=== PATIENT | female | born 1980 | race Caucasian/White ===

== ENCOUNTER 2018-02-10 12:48 | Emergency (ER) | payer OTHER, SELFPAY ==
[2018-02-10 12:49] VITALS: BP 112/73; PULSE 124; RESP 18; TEMP 36.2; O2SAT 95; BMI 27.8
[2018-02-10] MEDS: 0.9% Normal Saline 1,000 ML 1000 ML IV (13:06)
[2018-02-10] MEDS: Dicyclomine 20 MG/2 ML Vial IM (13:12)
[2018-02-10] MEDS: Ondansetron 4 MG/2 ML Vial IV (13:12)
[2018-02-10 13:21] LABS: Absolute Lymphocyte Count 0.53 X10^3/ul (0.83-4.51); Absolute Neutrophil Count 16.1 X10^3/uL (2.0-7.7); Basophil# 0.02 X10^3/uL; Basophil% 0.1 % (0-1); Hematocrit 38.7 % (37-47); Hemoglobin 13.4 g/dl (12.0-15.0); Lymphocyte # 0.53 X10^3/ul (4.0); Mean Corp Hgb Conc 34.6 g/gl (32-36); Mean Corpuscular Hgb 28.8 pg (27.0-32.0); Mean Platelet Vol. 9.6 fl (6.2-12.0); Monocyte# 1.03 X10^3/uL; Monocyte% 5.8 % (0-10); Neutrophil # 16.12 X10^3/uL (2.7-7.7); Neutrophil % 90.8 % (47-70); Platelet Count 307 K/mm3 (150-450); RBC Distribution Width CV 12.7 % (11.6-14.6); RBC Distribution Width SD 38.5 fl (35.1-43.9); Red Blood Count 4.66 M/mm3 (4.2-5.4); White Blood Count 17.8 K/mm3 (4.4-11.0)
[2018-02-10 13:23] LABS: Differential Indicated SCAN CRITERIA MET; POSITIVE COUNT NO; POSITIVE DIFFERENTIAL YES; POSITIVE MORPHOLOGY NO
[2018-02-10 13:39] LABS: AST(SGOT) 13 U/L (15-37); Alanine Aminotransfer ALT/SGPT 18 U/L (13-56); Alkaline Phosphatase 72 U/L (45-117); Anion Gap 9 (5-15); BUN 9 mg/dL (7-18); BUN/Creat Ratio 12.2 RATIO (10-20); Calcium,Total 8.9 mg/dL (8.5-10.1); Chloride 107 mmol/L (98-107); Creatinine, Serum 0.74 mg/dL (0.55-1.02); EST Glomerular Filtration Rate 95 mL/min (>60); Est Glom Filt Rate - Afr Amer 115 mL/min (>60); Estimated Creatinine Clearance 83.92 ml/min; Globulin 4.1 g/dL (2.2-4.2); Glucose 109 mg/dL (74-106); Potassium 3.8 mmol/L (3.5-5.1); Protein, Total 8.1 g/dL (6.4-8.2); Sodium Level 138 mmol/L (136-145)
--- NOTE | 2018-02-10 13:53 | CT_ITS ---
STUDY: CT ABDOMEN AND PELVIS WITHOUT CONTRAST REASON FOR EXAM: Female, 37 years old. Right lower quadrant pain and vomiting. RADIATION DOSAGE (If Supplied By Facility): CTDIvol = ( 7.01 ) mGy, DLP = ( 345.08 ) mGycm TECHNIQUE: Transaxial images were obtained from the dome of the diaphragm to the symphysis pubis without oral contrast, and without intravenous contrast. Sagittal and coronal images were reconstructed. Individualized dose optimization techniques were used for this CT. COMPARISON: None. FINDINGS: Minimal degree of dependent bibasilar atelectasis. The visualized portions of the heart are within normal limits. Normal liver. Normal gallbladder and extrahepatic biliary system. Normal spleen. Normal pancreas. Normal bilateral adrenal glands. Normal right kidney. Normal left kidney. Normal visualized stomach. Normal small intestine. Normal colon. The appendix is visualized and appears normal. Normal abdominal aorta. Normal inferior vena cava. Normal retroperitoneum. Normal urinary bladder. Normal abdominal wall. Levoscoliosis. CT/Abdomen/Pelvis without Cont IMPRESSION: Normal unenhanced CT of the abdomen and pelvis. Electronically Signed: Augustus Hawkins MD at 15:20 EDT Tel [phone], Service support ,
[2018-02-10 13:55] LABS: Pregnancy, Serum, hCG Quali. NEGATIVE Negative (0-9 Nonpreg)
[2018-02-10 14:17] LABS: Mucous, Urine 0 SEEN /hpf (<or=2+)
[2018-02-10 14:18] LABS: Color, Urine Yellow (Yellow); Glucose, Dipstick Normal (Normal); Ketone-Dipstick 5 mg/dl (Negative); Leukocyte Esterase-Dipstick 500 /ul (Negative); Nitrite-Dipstick Negative (Negative); Occult Blood-Urine 150 /ul (Negative); Protein-Dipstick 30 mg/dl (Negative); Specific Gravity, Urine 1.025 (1.002-1.030); Urine Clarity Turbid (Clear); Urine Urobilinogen Normal (Normal)
[2018-02-10 14:23] LABS: Urine Bilirubin Dipstick 1 mg/dL (Negative)
[2018-02-10 14:41] LABS: Bacteria 4+ /hpf (None Seen); Red Blood Cells-Urine 0-5 SEEN /hpf (0-5); Squamous Epithelial Cells - UA 0-5 SEEN /hpf (5-10); White Blood Cells 5-10 SEEN /hpf (0-5)
[2018-02-10 15:14] VITALS: BP 118/70; PULSE 105; RESP 14; O2SAT 99
--- NOTE | 2018-02-10 15:25 | ED.VISSUMM ---
- ER Visit Summary Date of Service: 02/10/18 Chief Complaint: [Vomiting, diarrhea, abdominal pain] History of Present Illness: The patient is a 37 F [presents to the emergency department with complaint of nausea and vomiting and diarrhea that started initially today around 6 AM. Patient started having abdominal pain around 10 AM. Patient denies any fever at home. Patient denies urinary symptoms. Patient denies sick contacts. Patient denies recent antibiotic usage. Patient denies recent travel. Patient describes abdominal pain is right lower quadrant. And rates it an 8 out of 10.] Physical Examination: [HEENT-PERRLA, EOMI. Cranial nerves II through XII grossly intact. TMs clear. Mucous membranes moist. No adenopathy. Cardiovascular-regular rate and rhythm without murmur or ectopy Lungs-clear to auscultation, chest wall stable without crepitus or subcu emphysema Abdomen-hyperactive bowel sounds. Patient does have tenderness over right lower quadrant McBurney's. Patient has some guarding. There is no rebound, rigidity, or perineal signs. Negative Rovsing sign. Extremities-intact ?4, normal range of motion, normal pulses, atraumatic] Test Results: [CBC with differential obtained showed an elevated white blood cell count of 17.8, hemoglobin 13, hematocrit 39, placed 307. Chemistries unremarkable. Liver enzymes were normal. Urinalysis was positive for 500 leukocyte esterase, 5-10 WBCs, +4 bacteria. HCG was negative. CT flank showed a normal appendix and nothing acute.] Emergency Department Course and Treatment: [Patient was given a liter normal same fluid bolus as well as Zofran 4 mg IV. Patient was treated with Bentyl IM. Patient was started on Cipro 500 mg p.o. Patient had stool sent for enteric pathogens which are pending.] Treatment Plan: [Patient will be treated with Cipro, Bentyl, and Zofran] Disposition: [Discharged to home in stable condition.] Impression: [Viral gastroenteritis UTI] This note was generated with [employer] dictation software. It may contain incorrect words, spelling, and punctuation that were not noted in review of the chart prior to signing ED Disposition - Plan for ED Patient: Chief Complaint: Abd Pain Referrals: Lanre Crouch MD [Primary Care Provider] -
--- NOTE | 2018-02-10 15:28 | ED.DEP ---
ED Disposition - Plan for ED Patient: Chief Complaint: Abd Pain Instructions: ED UTI Cystitis Female, ED Gastroenteritis Viral Prescriptions: Ondansetron [Zofran Odt] 4 mg PO Q8H PRN PRN #10 tab PRN Reason: Nausea Dicyclomine HCl [Bentyl] 20 mg PO TIDAC #20 cap Ciprofloxacin [Cipro] 500 mg PO BID #14 tab Referrals: Lanre Crouch MD [Primary Care Provider] - 3-5 Days
[2018-02-10 16:01] VITALS: BP 123/75; PULSE 98; RESP 14; O2SAT 99
[2018-02-10] MEDS: Ciprofloxacin 250 MG Tablet 500 MG PO (16:15)
== END 2018-02-10 16:15 | disposition home or self-care (01) ==
PROVIDERS: Emergency Provider Emergency Medicine; Family Provider Family Medicine; PCP Family Medicine
DX: A08.4 Viral intestinal infection, unspecified (principal); N39.0 Urinary tract infection, site not specified; J45.909 Unspecified asthma, uncomplicated
CPT/HCPCS: 74176; 80053; 81001; 84703; 85025; 87086; 87088; 87506; 96361; 96372; 96374; 99283; J7030; A4216; J2405

== ENCOUNTER 2018-06-16 18:13 | Emergency (ER) | payer OTHER, SELFPAY ==
[2018-06-16 18:14] VITALS: BP 131/89; PULSE 79; RESP 17; TEMP 36.7; O2SAT 97; BMI 28.5
--- NOTE | 2018-06-16 18:37 | ED.DCSUM_ITS ---
- ER Visit Summary Date of Service: 06/16/18 Chief Complaint: Headache History of Present Illness: The patient is a 37 F with a headache over the past 3 days. The pain is in her occipital region, worse on the right. Worse with motion and associated with some nausea. No head injuries or blood thinners. T his came on gradually. She had headaches in the past but not like this. No other associated symptoms. No fevers or recent illness. No weakness or numbness. Physical Examination: Afebrile and vital signs unremarkable. Head and neck atraumatic. HEENT unremarkable. Cranial nerves grossly intact. Neck is nontender. Heart regular. Lungs clear. Skin appears normal. Good strength and sensation. Good cerebellar testing. Normal speech. Test Results: None indicated Emergency Department Course and Treatment: Patient has acute headache. There is no indication for imaging or diagnostic testing. No red flag features. Patient was treated with Benadryl, Compazine, and Toradol. Will reassess. Patient will follow-up as an outpatient. Stay rested and hydrated. Return for any new or worsening issues. Treatment Plan: As above Disposition: Discharged Impression: 1. Acute cephalgia This note was generated with [employer] dictation software. It may contain incorrect words, spelling, and punctuation that were not noted in review of the chart prior to signing ED Disposition - Plan for ED Patient: Chief Complaint: Headache Referrals: Lanre Crouch MD [Primary Care Provider] -
--- NOTE | 2018-06-16 18:37 | ED.DEP ---
ED Disposition - Plan for ED Patient: Chief Complaint: Headache Instructions: ED Cephalgia Unspecified Referrals: Lanre Crouch MD [Primary Care Provider] -
[2018-06-16] MEDS: DiphenhydrAMINE 50 MG/ML Syringe 25 MG IM (18:46)
[2018-06-16] MEDS: Ketorolac 60 MG/2 ML Vial IM (18:46)
[2018-06-16] MEDS: proCHLORPERazine 10 MG/2 ML Vial IM (18:46)
[2018-06-16 19:16] VITALS: RESP 18
== END 2018-06-16 19:17 | disposition home or self-care (01) ==
PROVIDERS: Emergency Provider Emergency Medicine; Family Provider Family Medicine; PCP Family Medicine
DX: R51 Headache (principal); R11.0 Nausea; J45.909 Unspecified asthma, uncomplicated
CPT/HCPCS: 96372; 99282

== ENCOUNTER 2019-08-08 16:42 | Emergency (ER) | payer OTHER, SELFPAY ==
[2019-08-08 16:42] VITALS: BP 119/80; PULSE 77; RESP 15; TEMP 36.6; O2SAT 98; BMI 28.3
--- NOTE | 2019-08-08 16:46 | EKG12_ITS ---
Test Reason : CP/SOB Blood Pressure : / mmHG Vent. Rate : 078 BPM Atrial Rate : 078 BPM P-R Int : 134 ms QRS Dur : 086 ms QT Int : 398 ms P-R-T Axes : 022 022 024 degrees QTc Int : 453 ms Normal sinus rhythm Normal ECG Confirmed by EDMAR LAWRENCE, LADARIUS ([id number]), book or script editor KINDRA HESS ([id number]) on 08/11/2019 12:25:35 PM Referred By: RAFAELA/BABS Confirmed By:TWYLA HYATT MD
--- NOTE | 2019-08-08 17:05 | RAD_ITS ---
STUDY: X-RAY CHEST REASON FOR EXAM: Female, 39 years old. Chest pain TECHNIQUE: Single frontal view of the chest. COMPARISON: None. FINDINGS: Cardiac silhouette unremarkable. Pulmonary vascularity unremarkable. Aorta unremarkable. No focal airspace opacities. No pleural effusions. Upper abdomen unremarkable. Osseous structures intact. Incompletely characterized spinal curvature. No pneumothorax. RAD/Chest 1 View (Portable) IMPRESSION: No acute cardiopulmonary findings Electronically Signed: Sergio Serrano, at 17:38 EST Tel , Service support ,
--- NOTE | 2019-08-08 17:06 | ED.VISSUMM ---
- ER Visit Summary Date of Service: 08/08/19 Chief Complaint: Cough, shortness of breath History of Present Illness: The patient is a 39 F presenting with cough, shortness of breath. Her cough has been ongoing for the past 2 weeks. She states initially it was productive and now is a dry cough. Denies fever or chills. She has shortness of breath. She has a history of asthma and tried her albuterol at home today. She has pain bilateral lower chest with coughing. No PE/DVT risk factors. She is not a smoker. No other complaints. Physical Examination: Vitals are stable. Patient is afebrile. Alert no acute distress. HEENT exam is unremarkable. Neck is supple. Lungs are diminished bilaterally. Heart is regular rate and rhythm. Abdomen is soft left upper quadrant tenderness with no guarding or rebound Extremities are unremarkable. Skin is warm and dry. No focal neurologic deficit. Remainder of exam is unremarkable. Emergency Department Course and Treatment: EKG is sinus rate of 78 with no acute ischemic changes. Patient was given DuoNeb aerosol. Chest x-ray shows no acute process. CBC, chemistries unremarkable. Lipase is normal. Troponin is negative. D-dimer negative. On reevaluation, patient is feeling improved. She is given prednisone and a prescription for prednisone. She is advised to follow-up with her primary care physician. Advised to return to the ED for worsening complaints. Disposition: Discharge home Impression: Asthma exacerbation This note was generated with [employer] dictation software. It may contain incorrect words, spelling, and punctuation that were not noted in review of the chart prior to signing ED Disposition - Plan for ED Patient: Instructions: ASTHMA, Acute (Adult) Prescriptions: Prednisone [Deltasone] 40 mg PO DAILY #10 tab Prescription Printed Referrals: Lanre Crouch MD [Primary Care Provider] -
[2019-08-08] MEDS: Ipratropium/Albuterol Sulfate 3 ML AMPUL.NEB INHALATION (17:12)
[2019-08-08 17:14] VITALS: PULSE 72; RESP 16; O2SAT 98
[2019-08-08 17:18] LABS: Absolute Lymphocyte Count 2.25 X10^3/uL (0.83-4.51); Absolute Neutrophil Count 5.8 X10^3/uL (2.0-7.7); Basophil# 0.04 X10^3/uL; Basophil% 0.4 % (0-1); Eosinophil# 0.16 X10^3/uL; Eosinophils% 1.7 % (0-5); Hematocrit 38.1 % (37-47); Hemoglobin 12.7 g/dL (12.0-15.0); Lymphocyte # 2.25 X10^3/ul (4.0); Lymphocyte % 24.5 % (19-41); Mean Corp Hgb Conc 33.3 g/dL (32-36); Mean Corpuscular Volume 84.1 fL (81-99); Mean Platelet Vol. 9.4 fl (6.2-12.0); Monocyte# 0.95 X10^3/uL; Monocyte% 10.4 % (0-10); NRBC Flagged by Analyzer 0 % (0-5); Neutrophil # 5.75 X10^3/uL (2.7-7.7); Neutrophil % 62.8 % (47-70); Platelet Count 291 K/mm3 (150-450); RBC Distribution Width CV 12.4 % (11.6-14.6); RBC Distribution Width SD 37.5 fl (35.1-43.9); Red Blood Count 4.53 M/mm3 (4.2-5.4); White Blood Count 9.2 K/mm3 (4.4-11.0)
[2019-08-08 17:31] LABS: D-Dimer Quantitative (DVT/PE) < 0.27 FEU/ug/m (0.27-0.49)
[2019-08-08 17:37] LABS: ALB/GLOB Ratio 0.9 RATIO (0.9-2.4); AST(SGOT) 12 U/L (15-37); Alanine Aminotransfer ALT/SGPT 19 U/L (13-56); Albumin, Serum 3.7 g/dL (3.2-5.0); Alkaline Phosphatase 75 U/L (45-117); Anion Gap 9 (5-15); BUN 12 mg/dL (7-18); BUN/Creat Ratio 18.2 RATIO (10-20); Calcium,Total 8.7 mg/dL (8.5-10.1); Chloride 107 mmol/L (98-107); Creatinine, Serum 0.66 mg/dL (0.55-1.02); EST Glomerular Filtration Rate 107 mL/min (>60); Est Glom Filt Rate - Afr Amer 129 mL/min (>60); Globulin 4.2 g/dL (2.2-4.2); Glucose 94 mg/dL (74-106); Lipase 123 U/L (73-393); Potassium 3.6 mmol/L (3.5-5.1); Protein, Total 7.9 g/dL (6.4-8.2); Sodium Level 139 mmol/L (136-145)
--- NOTE | 2019-08-08 18:18 | ED.DEP ---
ED Disposition - Plan for ED Patient: Instructions: ASTHMA, Acute (Adult) Prescriptions: Prednisone [Deltasone] 40 mg PO DAILY #10 tablet Referrals: Lanre Crouch MD [Primary Care Provider] -
[2019-08-08] MEDS: predniSONE 20 MG Tablet 60 MG PO (18:38)
[2019-08-08 18:41] VITALS: BP 114/86; PULSE 75; RESP 15; O2SAT 99
== END 2019-08-08 18:42 | disposition home or self-care (01) ==
LOC: ED 17:23
PROVIDERS: Emergency Provider Emergency Medicine; Family Provider Family Medicine; PCP Family Medicine
DX: J45.901 Unspecified asthma with (acute) exacerbation (principal)
CPT/HCPCS: 71045; 80053; 83690; 84484; 85025; 85379; 93005; 94640; 99284; J7030; A4216

== ENCOUNTER 2020-06-27 16:56 | Emergency (ER) | payer OTHER, SELFPAY ==
[2020-06-27 16:57] VITALS: BP 122/81; PULSE 92; RESP 17; TEMP 36.6; O2SAT 98; BMI 28.4
--- NOTE | 2020-06-27 17:22 | ED.DCSUM_ITS ---
History of Present Illness Chief Complaint: Asthma Informant: Patient Narrative: Patient is a 39-year-old female with a past medical history of asthma and IBS who presents to the emerge department for shortness of breath. She states that every spring and fall she goes through a very bad asthma flare. She feels like this is the same exact as she has had multiple times before in the past. She states it was very bad on Wednesday. She does have home inhalers which only give her temporary relief. Mildly short of breath at this time. She has had some chest tightness under the left breast. This again is very similar to her previous episodes. She is not a smoker. She denies any history of heart issues. No history of DVT/PE. No leg swelling calf pain. She has not been coughing. She denies any fevers or chills. No abdominal pain or nausea/vomiting. Past Medical History - Allergies and Home Meds Allergies/Adverse Reactions: Allergies erythromycin base [Erythromycin Base] Allergy (Verified 06/27/20 16:56) Rash sulfamethoxazole [From Septra] Allergy (Verified 06/27/20 16:56) Rash trimethoprim [From Septra] Allergy (Verified 06/27/20 16:56) Rash Primary Care Physician: Lanre Crouch MD [Primary Care Provider] - 3-5 Days if not improving Prior records reviewed: Yes Past Medical History: - - Asthma, IBS Smoking Status: Never smoker Review of Systems All systems negative except as indicated General: Denies: Chills, Fever, Sweats Eyes: Denies: Visual changes - bilaterally, Diplopia ENT: Denies: Rhinorrhea, Sore throat Cardiovascular: Denies: Palpitations, Heart racing Respiratory: Reports: Dyspnea. Denies: Cough, Sputum Gastrointestinal: Denies: Abdominal pain, Nausea, Vomiting, Diarrhea Genitourinary: Denies: Dysuria, Hematuria, Frequency Musculoskeletal: Denies: Back pain, Extremity Pain Skin: Denies: Rash, Wounds Neurological: Denies: Headache, Weakness, Numbness Physical Exam Vital Signs/Narrative: Vital Signs Temp Pulse Resp BP Pulse Ox 06/27/20 16:57 97.8 F 92 17 122/81 H 98 Inital Vital Signs reviewed: Yes General: Well nourished, Well developed, No Acute Distress Head: Normocephalic, Atraumatic Eyes: Perrl, EOMI ENT: Moist mucous membranes, No rhinorrhea Neck: Supple, Nontender Cardiovascular: Regular rate, Regular rhythm, No murmurs Respiratory: No distress, CTA bilaterally, Chest nontender Abdomen: Soft, Nontender, Nondistended, Normal bowel sounds Back: Nontender, Normal Inspection Extremities: Nontender, No edema. Negative for: Edema, Calf Tenderness Skin: Normal color, No rash Neurological: Alert, Oriented x3, Cranial nerves II-XII grossly intact, Normal Strength, Normal Sensation Psychological: Normal affect, Normal Mood Diagnostic/Tx/Re-eval - Medical Decision Making Patient presents to the ED for flare of her asthma. She does have a benign physical exam. Resting comfortably. No evidence of respiratory distress. Speaking in full sentences. Upon arrival to the emerge department vital signs within normal limits. She is not hypoxic. Not tachypneic. She states she typically gets a breathing treatment and is placed on steroids. She is agreeable to doing a chest x-ray but we both agree that a full work-up is not necessary as this is very similar to her previous episodes. After DuoNeb she is feeling much better. X-ray did not reveal any acute cardiopulmonary abnormality. She does feel comfortable going home at this time. We will write a prescription for prednisone. Warning signs and symptoms for which to return to the emergency department are reviewed with her. She otherwise is to follow-up with her PCP. She understands and is agreeable with this plan. She is discharged home in stable condition. ED Disposition - Plan for ED Patient: Disposition: Home or Assisted Living Diagnosis: Asthma flare Instructions: ED REACTIVE AIRWAY DISEASE Adult Prescriptions: predniSONE tablet 40 mg PO DAILY 4 Days #8 tab Transmission Status: Received by [facility][id number] Referrals: Lanre Crouch MD [Primary Care Provider] - 3-5 Days if not improving
[2020-06-27] MEDS: Ipratropium/Albuterol Sulfate 3 ML AMPUL.NEB INHALATION (17:31)
[2020-06-27 17:32] VITALS: PULSE 76; RESP 16; O2SAT 98
[2020-06-27] MEDS: predniSONE 20 MG Tablet 40 MG PO (17:43)
--- NOTE | 2020-06-27 17:47 | RAD_ITS ---
STUDY: X-RAY CHEST REASON FOR EXAM: Female, 39 years old. ASTHMA TECHNIQUE: 2 views COMPARISON: Chest radiograph of 08/08/2019 FINDINGS: The lungs are clear and expanded. There is no demonstrated pleural abnormality. Normal size heart. Normal mediastinum and sandra. Normal visualized pulmonary arteries. Normal visualized aortic arch and descending thoracic aorta. Dextroscoliosis of the thoracic spine. Normal visualized ribs, clavicles, and shoulders. There is no demonstrated abnormality of the visualized soft tissue structures of the upper abdomen. RAD/Chest PA and Lateral IMPRESSION: No acute cardiopulmonary findings or changes. Negative for new consolidation, focal atelectasis or pleural effusion. Normal cardiac size. Dextroscoliosis of the thoracic spine. Electronically Signed: Luz Quinones MD at 18:03 EDT , Service support ,
[2020-06-27 18:31] VITALS: BP 108/66; PULSE 82; RESP 16; O2SAT 98
== END 2020-06-27 18:32 | disposition home or self-care (01) ==
LOC: ED 18:21
PROVIDERS: Emergency Provider Emergency Medicine; PCP Family Medicine
DX: J45.901 Unspecified asthma with (acute) exacerbation (principal)
CPT/HCPCS: 71046; 94640; 99283

== ENCOUNTER 2021-06-23 20:07 | Emergency (ER) | payer OTHER, SELFPAY ==
[2021-06-23 20:08] VITALS: BP 149/82; PULSE 119; RESP 16; TEMP 36.3; O2SAT 99; BMI 28.3
--- NOTE | 2021-06-23 20:20 | RAD_ITS ---
INDICATION: SOB EXAMINATION/TECHNIQUE: X-RAY - XR Chest 1 View COMPARISON: 06/27/2020 chest x-ray FINDINGS: LINES/DEVICES: None. LUNGS: Symmetric normal lung volumes. No airspace opacity or abnormal interstitial pattern. No nodule or mass. No pleural effusion or pneumothorax. MEDIASTINUM AND CARDIOVASCULAR STRUCTURES: Normal size and contour of the cardiomediastinal silhouette. No evidence of pulmonary vascular congestion. BONES AND SOFT TISSUES: Moderate dextroscoliotic curvature centered at T10 vertebral body, unchanged compared to prior images. No misshapened vertebral body. No significant degenerative endplate changes. RAD/Chest 1 View IMPRESSION: 1. No radiographic evidence of acute cardiopulmonary disease. Electronically Signed: Sunil Valdez DO at 21:02 EDT Tel , Service support ,
[2021-06-23 22:08] VITALS: BP 134/96; PULSE 88; RESP 16; TEMP 36.3; O2SAT 97
--- NOTE | 2021-06-23 22:57 | ED.VIS.DYS ---
HPI History of Present Illness Chief Complaint: Shortness of Breath Informant: patient Narrative Narrative: 3-day history of cough congestion with mild productive sputum. No fevers. Yesterday seen at urgent care placed on prednisone inhaler continued Mucinex. Had a Covid test negative. Today reports headache increasing dyspnea. History of asthma. No tobacco history. Covid vaccinated. No infections in the past. Denies vomiting or diarrhea. Denies any loss of taste or smell. PFSH PFS Medical History Asthma IBS (irritable bowel syndrome) Home Medications albuterol sulfate [Ventolin Hfa] 1 - 2 puff INHALATION Q6H PRN PRN 02/15/14 [History Last Taken Unknown] prednisone 40 mg PO DAILY 06/23/21 [History Last Taken Unknown] Allergy/AdvReac Type Severity Reaction Status Date / Time erythromycin base Allergy Rash Verified 06/27/20 16:56 [Erythromycin Base] sulfamethoxazole Allergy Rash Verified 06/27/20 16:56 [From Septra] trimethoprim [From Septra] Allergy Rash Verified 06/27/20 16:56 Social History Smoking Status: Never smoker ROS ROS ED Constitutional Constitutional ED: Denies chills, fever(s) or sweats Eyes Eyes: Denies change in vision ENT ENT ED: Denies dysphagia or sore throat Cardiovascular Cardiovascular: Denies chest pain, leg edema, palpitations or racing heartbeat Respiratory/Chest Respiratory/Chest: Reports cough and dyspnea; Denies dyspnea on exertion Gastrointestinal Gastrointestinal: Denies abdominal pain, diarrhea, nausea or vomiting Genitourinary Genitourinary ED: Denies dysuria, hematuria or urinary frequency Musculoskeletal Musculoskeletal: Denies back pain, extremity pain or neck pain Integumentary Denies rash or wounds Neurologic Neurologic: Reports headache(s); Denies paresthesias or weakness EXAM Physical Exam Const Vital Signs: 06/23/21 20:08 06/23/21 22:08 06/23/21 23:20 Temperature 97.4 F L 97.4 F L Temperature Source Temporal Temporal Pulse Rate 119 H 88 59 L Respiratory Rate 16 16 18 Respiratory Effort Normal Respiratory Depth Normal Respiratory Pattern Normal Blood Pressure 149/82 H 134/96 H 133/62 H Blood Pressure Mean 104 108 Pulse Ox 99 97 100 Oxygen Delivery Method Room Air Room Air Positive well nourished and well developed General Appearance ED: well developed and NAD HEENT Reports moist mucous membranes normocephalic and atraumatic Eyes PERRL, EOMs intact bilaterally and conjunctivae normal General Eye ED: Yes normal appearance of both eyes Neck no lymphadenopathy and supple General: Negative for tenderness Chest Wall Chest: Negative for tenderness Resp normal respiratory effort and normal air movement Effort and Inspection: symmetric chest movement; Negative for respiratory distress Cardio regular rate, regular rhythm and no murmurs Peripheral Pulses: pulses 2+ throughout GI normal to inspection, nondistended, normoactive bowel sounds and non-tender Palpation: Negative for guarding or rebound tenderness present Back/Spine no CVA tenderness and no thoracic nor lumbar tenderness Extremity normal to inspection General Extremety ED: Negative for edema or tenderness General Extremity: Negative for edema Neuro oriented x3 and no sensory deficits noted Sensorium / Orientation: awake and alert Skin no rashes or lesions noted and no wounds MDM MDM MDM Narrative Medical decision making narrative: Patient initially tachycardic in triage recheck normalized. Pulse ox 97%. Chest x-ray was negative. Patient negative rapid Covid yesterday. New symptoms with headaches. Discussed will order PCR for further testing. Patient will be called for results. She will continue isolation. She has an inhaler and steroids for which she will continue with her asthma history. Return precautions discussed. All questions answered. Patient is being discharged under pandemic conditions under declared global, national and state disaster activation, with limited medical resources. Patient and community understands this. Results discussed in layman's terms to the patient satisfaction. All questions answered in layman's terms. Patient understands importance of follow-up care as directed. Patient has been instructed to return to the ED immediately if new symptoms, problems, or questions occur. We mutually agree with the plan of disposition. The patient understand that they may call or return with any questions or concerns at any time. Lab Data Labs: Laboratory Results - last 24 hr 06/23/21 23:07 COVID-19 (OLINDA) Negative Radiography Chest X-Ray - ED: 1 View, Read by ED Physician and Read by Radiologist Diagnostic Testing: Radiology Impression Chest X-Ray 06/23/21 20:20 IMPRESSION: 1. No radiographic evidence of acute cardiopulmonary disease. Electronically Signed: Sunil Valdez DO at 21:02 EDT Tel , Service support , Discharge Plan Triage Chief Complaint: Shortness of Breath ED Provider: Armand Kowalski Dx/Rx/DC Orders Clinical Impression: Viral URI with cough, Asthma Instructions: ED Asthma, Acute (Adult), ED URI, Viral, No Abx (Adult) Prescriptions: No Action albuterol sulfate [Ventolin HFA] 1 INHALER inhaler 1 - 2 puff inhalation Q6H PRN PRN (Reason: Shortness Of Breath) RF: 0 prednisone 20 mg tablet 40 mg PO DAILY RF: 0 Primary Care Provider: Lanre Crouch Referrals: Lanre Crouch MD [Primary Care Provider] - 3-5 Days if not improving Activity Restrictions/Additional Instructions: Covid PCR ordered for further testing pending results. Continue your steroids inhaler as needed. Chest x-ray negative. Continue to monitor your pulse oximeter as needed. Return if any return for reevaluation if pulse ox drops below 88%. Disposition Disposition: Home, Self Care Discharge Date/Time: 06/23/21 23:21
[2021-06-23 23:20] VITALS: BP 133/62; PULSE 59; RESP 18; O2SAT 100
[2021-06-24 00:48] LABS: Probe Check PASS; Specimen Processing Control PASS
== END 2021-06-23 23:21 | disposition home or self-care (01) ==
LOC: ED 23:14
PROVIDERS: Emergency Provider Emergency Medicine; PCP Family Medicine
DX: J06.9 Acute upper respiratory infection, unspecified (principal); R05.9 Cough, unspecified; J45.909 Unspecified asthma, uncomplicated; K58.9 Irritable bowel syndrome, unspecified
CPT/HCPCS: 71045; 87635; 99282; U0005; U0003